=== PATIENT | female | born 1975 | race Caucasian/White ===

== ENCOUNTER → 2024-03-19 10:50 | Outpatient (REF) | payer OTHER, SELFPAY | LOC: HWEVLT 10:50 | PROVIDERS: ATTENDING PHYSICIAN Radiology Vascular & Interventional Radiology | DX: I83.893 Varicose veins of bilateral lower extremities with other complications (principal) | CPT/HCPCS: 93970 ==

== ENCOUNTER → 2024-12-29 10:20 | Outpatient (REF) | payer BC, OTHER, SELFPAY | LOC: HWRAD 10:20 | PROVIDERS: ATTENDING PHYSICIAN Obstetrics & Gynecology Gynecology; FAMILY PHYSICIAN Family Medicine | DX: N93.9 Abnormal uterine and vaginal bleeding, unspecified (principal) | CPT/HCPCS: 76830; 76856 ==